=== PATIENT | male | born 1995 | race Caucasian/White ===

== ENCOUNTER 2024-06-27 01:03 | Emergency (ER) | payer MEDICAID, SELFPAY ==
[2024-06-27 01:19] VITALS: BP 152/98; PULSE 127; RESP 20; TEMP 37.3; O2SAT 94; BMI 50.5
--- NOTE | 2024-06-27 01:36 | CRLHL7_ITS ---
For Patients: As a result of the Cures Act, medical imaging exams and procedure reports are released immediately into your electronic medical record. You may view this report before your referring provider. If you have questions, please contact your health care provider. Indication: Palpitations Technique: Two views of the chest Comparison: None Findings/Impression: Low lung volumes. Question of cardiomegaly with mild volume overload versus bronchovascular crowding from hypoinflation. No organized consolidation. There is a possible nodular opacity in the right lung measuring 8 millimeters, nonemergent outpatient chest CT recommended for further evaluation. Dictated by Juan Francisco Barrow MD @ 06/27/2024 2:26:16 AM (Electronically Signed)
--- NOTE | 2024-06-27 01:45 | ED_ITS ---
HPI - General Adult General Chief complaint: Arrhythmia/Palpitations Stated complaint: High Blood Pressure, shortness of breath Time Seen by Provider: 06/27/24 01:15 Source: patient Mode of arrival: ambulatory Limitations: no limitations History of Present Illness HPI narrative: 29-year-old male reports feeling of pounding, fast heart rate at rest and dyspnea on exertion tonight, minimal symptoms a couple of days ago, worse tonight. No swelling in the legs. No prior history of DVT or PE. No chest pain. No productive cough. Had not noticed any fever at home but has a low- grade fever here in the ED. No prior history of sleep apnea, right heart strain, cardiac disease. No family history of premature coronary artery disease or arrhythmia. Does have a history of hypertension, not treated. This was sabrina gnosed last summer through a primary care visit. He was advised on follow-up but has not been able to do so since he is in school at [employer]. No trauma or injury. No prior history of similar symptoms. Past medical history is otherwise benign. Denies prior surgeries. Has untreated hypertension as stated above, obesity. No long-term medications or allergies. Does not drink alcohol, no recreational pharmaceuticals. ROS is notable for the respiratory and cardiovascular symptoms as above only, otherwise denies times 12 systems. Related Data Home Medications ?Medication ?Instructions ?Recorded ?Confirmed No Known Home Medications 06/27/24 06/27/24 Allergies Allergy/AdvReac Type Severity Reaction Status Date / Time No Known Drug Allergies Allergy Verified 06/27/24 01:22 [facility] Social History Smoking Status: Never smoker How often do you have a drink containing alcohol: never AUDIT-C Alcohol total score: 0 Non-prescribed substance use: denies use Exam Const: Vital Signs, click to edit/add: Vital Signs - 24 hr 06/27/24 01:19 06/27/24 03:04 Temperature 99.1 F Pulse Rate [Pulse Oximeter] 127 H 118 H Respiratory Rate 20 18 Blood Pressure [Ri ght Upper Arm] 152/98 H 144/89 H Pulse Oximetry 94 96 Oxygen Delivery Me thod Room Air Room Air Documenting provider has reviewed patient's vital signs: yes Common norm als: no apparent distress Other: Mildly anxious but appropriate. Answers questions well, good historian. HENMT: Common normals: normocephalic, moist oral mucous membranes and oropharynx normal Head and scalp: normocephalic Eye: Common normals: conjunctivae normal General eye: normal appearance of both eyes Conjunctiva: conjunctiva(e) normal Neck & C-Spine: Common normals: full ROM and no lymphadenopathy Lymph: Lymphatic: no lymphadenopathy noted Resp: Common normals: normal respiratory effort, no use of accessory muscles and clear to auscultation bilaterally Effort & inspection: able to speak in complete sentences Auscultation: clear to auscultation bilaterally Cardio: Common normals: regular rate, regular rhythm, S1 normal heart sound, S2 normal heart sound and no murmurs Rate: regular rate Rhythm: regular rhythm Heart sounds: S1 normal and S2 normal Other: Tachycardic but otherwise normal. Heart rate has not come down with rest. GI: Common normals: Normal to inspection, nondistended, normoactive bowel sounds present, soft to palpation, non-tender, no hepatosplenomegaly and no masses Palpation: soft and no hepatosplenomegaly Extremity: Common normals: normal to inspection, normal capillary refill and no joint enlargement General: normal exam except as noted Other: Trace edema, equal and symmetric Neuro: Speech: speech normal Gait (neuro): normal gait Motor exam: no movement abnormalities noted Psych: Attitude: engaged Activity/motor behavior: appropriate eye contact Insight: insight good Judgement: judgment good Skin: Common normals: no rashes or lesions noted General skin exam: no rashes or lesions noted Course Course ED Course: 29-year-old male with sensation of pounding heart, tachycardia and hypertension noted. Concern for pulmonary embolism, cardiac arrhythmia, acute coronary syndrome, viral illness, pneumonia, heart failure, cardiomyopathy, viral illness, amongst others. Will place peripheral IV, placed on awake overnight monitor, EKG, typical labs including D-dimer. Chest x-ray. Await findings. Reevaluation(s) Time of Reevaluation #1: 03:05 Reevaluation #1: Counseled patient findings. Resting heart rate is now in the 1 teens. He is not experiencing any worsening. Reviewed x-ray findings, incidental finding noted, discussed. Positive for COVID, negative D-dimer, CBC, other labs. Overall reassuring. No signs of heart strain or other abnormality on labs. R ecommended Tylenol and ibuprofen. He has an outpatient follow-up in 6 days. If still symptomatic, would recommend outpatient echo and Holter monitor. Will need outpatient CT for follow-up on small nodule, discussed. We discussed the risks and benefits of antiviral medication. He declines this. Written instructions provided. All questions answered. Vital Signs Vital signs: Initial Vital Signs Temperature 99.1 F 06/27/24 01:19 Temperature Source Temporal Artery Scan 06/27/24 01:19 Pulse Rate 127 H 06/27/24 01:19 Respiratory Rate 20 06/27/24 01:19 Blood Pressure 152/98 H 06/27/24 01:19 Blood Pressure Mean 116 H 06/27/24 01:19 Blood Pressure Position Sitting 06/27/24 01:19 Pulse Oximetry 94 06/27/24 01:19 Oxygen Delivery Method Room Air 06/27/24 01:19 Vital Signs Temperature 99.1 F 06/27/24 01:19 Pulse Rate 127 H 06/27/24 01:19 Respiratory Rate 20 06/27/24 01:19 Blood Pressure 152/98 H 06/27/24 01:19 Pulse Oximetry 94 06/27/24 01:19 Oxygen Delivery Method Room Air 06/27/24 01:19 Temperature 99.1 F 06/27/24 01:19 Pulse Rate 118 H 06/27/24 03:04 Respiratory Rate 18 06/27/24 03:04 Blood Pressure 144/89 H 06/27/24 03:04 Pulse Oximetry 96 06/27/24 03:04 Oxygen Delivery Method Room Air 06/27/24 03:04 Medical Decision Making Lab Data Lab results reviewed: Yes I reviewed the patient's lab results Lab results narrative: COVID positive. No significant leukocytosis, elevated D-dimer, electrolyte abnormality or troponin elevation. Labs: Lab Results 06/27/24 06/27/24 06/27/24 Range/Units 01:36 01:47 01:55 WBC 8.20 (4.50-11.00) K/uL RBC 5.55 (4.30-5.90) m/uL Hgb 15.5 (13.5-17.5) gm/dL Hct 46.6 (37.0-53.0) % MCV 84 (80-100) fL MCH 28 (26-34) pg MCHC 33 (32-36) gm/dL RDW Coeff of Danay 12.9 (11.5-15.5) % Plt Count 278 (140-440) K/uL Neut % (Auto) 75.1 H (42.0-72.0) % Lymph % (Auto) 9.0 L (20-44) % [place] % (Auto) 12.9 H (0.0-11.0) % Eos % (Auto) 2.2 (0.0-7.0) % Baso % (Auto) 0.6 (0.0-3.0) % Neut # (Auto) 6.20 (1.7-7.0) K/uL Lymph # (Auto) 0.70 L (0.90-2.90) K/uL [place] # (Auto) 1.10 H (0.00-0.90) K/UL Eos # (Auto) 0.18 (0.00-0.50) K/uL Baso # (Auto) 0.05 (0.00-0.30) K/uL Abs Immat Gran (auto) 0.02 (0.00-0.30) K/uL Imm/Tot Granulo (auto) 0.2 % D-Dimer Quant (PE/DVT) 0.16 (0.00-0.50) ug/ml Sodium 136 (135-149) mmol/L Potassium 4.1 (3.6-5.1) mmol/L Chloride 103 (96-114) mmol/L Carbon Dioxide 24 (20-32) mmol/L Anion Gap 9 (7-15) mEq/L BUN 17 (5-24) mg/dL Creatinine 0.9 (0.5-1.5) mg/dL Estimated Creat Clear 125.05 Estimated GFR 119 ml/min Glucose 118 H (60-115) mg/dL Calcium 9.0 (8.4-10.6) mg/dL Total Bilirubin 0.3 (0.1-1.5) mg/dL AST 26 (12-35) U/L ALT 38 (4-50) U/L Alkaline Phosphatase 87 (40-150) U/L Troponin I < 0.01 L (0.01-0.04) ng/mL C-Reactive Protein 1.8 H (0.5-1.0) mg/dL NT-Pro-B Natriuret Pep < 20 pg/mL Total Protein 7.0 (6.0-8.3) g/dL Albumin 4.3 (3.3-5.0) g/dL TSH 2.330 (0.270-4.200) uIU/mL SARS-CoV-2 (PCR) POSITIVE SARS-CoV-2 A (Negative) Influenza Type A (PCR) Negative PCR FLU A (Negative) Influenza Type B (PCR) Negative PCR FLU B (Negative) RSV (PCR) Negative PCR RSV (Negative) Lab Acknowledgement Test Added POC Troponin I 0.00 L (0.01-0.04) ng/ml Imaging Data Chest x-ray: Attestation: I have reviewed the pertinent imaging results. My impression: Cardiomegaly but no focal consolidation. No pleural effusion. Questioning mild central vascular congestion. Radiologist's impression: Ordering Physician: Evelina Zhang M.D. Date of Service: 06/27/24 Procedure(s): XR chest 2V Accession Number(s): [id number] cc: Provider,Not a Local; Evelina Zhang M.D.~ For Patients: As a result of the Cures Act, medical imaging exams and procedure reports are released immediately into your electronic medical record. You may view this report before your referring provider. If you have questions, please contact your health care provider. Indication: Palpitations Technique: Two views of the chest Comparison: None Findings/Impression: Low lung volumes. Question of cardiomegaly with mild volume overload versus bronchovascular crowding from hypoinflation. No organized consolidation. There is a possible nodular opacity in the right lung measuring 8 millimeters, nonemergent outpatient chest CT recommended for further evaluation. Dictated by Juan Francisco Barrow MD @ 06/27/2024 2:26:16 AM (Electronically Signed) ECG Data Attestation: I personally reviewed and interpreted this ECG as follows: Prior ECG tracings: not available for review Interpretation: Sinus tachycardia with rate of 128 at rest. Otherwise normal intervals and axis. One PVC is present. No other significant ST or T-wave abnormalities. Good R-wave progression, no criteria for LVH. Discharge Plan Discharge Clinical Impression: COVID, Palpitation Patient Disposition: Home, Self-Care Condition: Stable Instructions: Heart Palpitations (DC), COVID-19 (Coronavirus Disease 2019) (ED) Additional Instructions: As we discussed, there are no signs of significant pneumonia, blood clot, heart strain or other dangerous emergent abnormality today. He you did test positive for COVID, this certainly could explain some of your symptoms. Your elevated heart rate and shortness of breath response are not a typical symptom of this disease but it can happen if you have untreated high blood pressure, underlying sleep apnea and obesity. You are at higher risk of complications from COVID. Thankfully, your choice to be vaccinated will help protect you from much of this risk. Quarantine for the next few days, use Tylenol and ibuprofen as needed for fever, chest congestion and cough. Keep your follow-up for Saturday as planned. If you are still having symptoms of racing heart, I would recommend that your provider order an outpatient Holter monitor and echo. Your blood pressure was elevated here in the emergency department, this needs to be recheck outpatient as well. You have a small nodule seen on the chest x-ray. We discussed this and you were given a copy of your chest x-ray results. You need to have a non emergent chest CT ordered to further clarify this. We see this often and I am not overly concerned about it, it does not have anything to do with your symptoms today either. We often find these as what are known as incidental findings when we are looking for other diagnostic clues. You should strongly consider having a sleep study performed as well, we often see these reactions to illness in men who have underlying sleep apnea. If you have significant worsening, please come back to the ER in the meantime. Please bring this paperwork with you to your follow-up appointment. Activity Level: Activity as Tolerated Discharge Diet: Regular Prescriptions: No Action No Known Home Medications Follow Up/Referrals: Provider,Not a Local [Primary Care Provider] - Stand Alone Forms: [employer] Info Instructions
[2024-06-27 02:17] LABS: Albumin* 4.3 g/dL (3.3-5.0); Chloride* 103 mmol/L (96-114); Sodium* 136 mmol/L (135-149)
[2024-06-27 02:18] LABS: Potassium* 4.1 mmol/L (3.6-5.1)
[2024-06-27 02:20] LABS: Alanine Aminotransferase* 38 U/L (4-50); Alkaline Phosphatase* 87 U/L (40-150); Anion Gap 9 mEq/L (7-15); Aspartate Amino Transferase* 26 U/L (12-35); Bilirubin Total* 0.3 mg/dL (0.1-1.5); Blood Urea Nitrogen* 17 mg/dL (5-24); Carbon Dioxide* 24 mmol/L (20-32); Creatinine* 0.9 mg/dL (0.5-1.5); Est. Creatinine Clearance* 125.05; Estimated Glomerular Filt Rate 119 ml/min
[2024-06-27 02:21] LABS: Basophils Absolute Auto 0.05 K/uL (0.00-0.30); Basophils Percent Auto 0.6 % (0.0-3.0); Eosinophils Absolute Auto 0.18 K/uL (0.00-0.50); Eosinophils Percent Auto 2.2 % (0.0-7.0); Glucose* 118 mg/dL (60-115); Hematocrit 46.6 % (37.0-53.0); Hemoglobin* 15.5 gm/dL (13.5-17.5); Immature Granulocytes Abs Auto 0.02 K/uL (0.00-0.30); Immature Granulocytes Pct Auto 0.2 %; Mean Corpuscular HGB Conc 33 gm/dL (32-36); Mean Corpuscular Hemoglobin 28 pg (26-34); Mean Corpuscular Volume 84 fL (80-100); Monocytes Percent Auto 12.9 % (0.0-11.0); Neutrophils Percent Auto 75.1 % (42.0-72.0); Platelet Count* 278 K/uL (140-440); RDW Coefficient of Variation % 12.9 % (11.5-15.5); Red Blood Count 5.55 m/uL (4.30-5.90)
[2024-06-27 02:23] LABS: C Reactive Protein* 1.8 mg/dL (0.5-1.0)
[2024-06-27 02:28] LABS: Slide Review Reflex No
[2024-06-27 02:29] LABS: D Dimer Quantitative* 0.16 ug/ml (0.00-0.50)
[2024-06-27 02:34] LABS: NT Pro B Type NatriureticPept* < 20 pg/mL; Troponin I* < 0.01 ng/mL (0.01-0.04)
[2024-06-27 02:45] LABS: PCR FLU A Negative PCR FLU A (Negative); PCR FLU B Negative PCR FLU B (Negative); PCR RSV Negative PCR RSV (Negative); SARS PCR* POSITIVE SARS-CoV-2 (Negative)
[2024-06-27 03:04] VITALS: BP 144/89; PULSE 118; RESP 18; O2SAT 96
== END 2024-06-27 03:12 | disposition home or self-care (01) ==
PROVIDERS: Emergency Provider Family Medicine
DX: U07.1 COVID-19 (principal); R00.2 Palpitations
CPT/HCPCS: 36415; 71046; 80053; 83880; 84443; 84484; 85025; 85379; 86140; 87631; 93005; 99284; 99285